=== PATIENT | male | born 1975 | race Caucasian/White ===

== ENCOUNTER 2023-12-18 10:30 | Emergency (ER) | payer BC, MEDICAID ==
[~2023-12-18] VITALS: Ht 167.6 cm; Wt 81.1 kg
[2023-12-18 11:35] LABS: BILIRUBIN,URINE NEGATIVE (Neg); CLARITY,URINE CLEAR (Clear); COLOR,URINE YELLOW (Yellow); GLUCOSE, URINE NEGATIVE (Neg); KETONES,URINE NEGATIVE (Neg); LEUKOCYTE ESTERASE ,URINE NEGATIVE (Neg); NITRITES, URINE NEGATIVE (Neg); OCCULT BLOOD,URINE NEGATIVE (Neg); PH,URINE 6.5 (4.8-8.0); PROTEIN,URINE NEGATIVE (Neg); UROBILINOGEN,URINE 0.2 E.U/dL (0.2-1.0)
[2023-12-18] MEDS ORDERED: HYDR-3965 PO (12:06)
[2023-12-18 12:16] VITALS: BP 124/70; PULSE 80; RESP 16; TEMP 98.5; O2SAT 98
[2023-12-18 12:18] LABS: UA COLLECTION TYPE CLN CATCH MIDSTREAM
[2023-12-20 12:25] LABS: CHLAMYDIA TRACHOMATIS, NAA Negative (Negative)
== END 2023-12-18 12:19 | disposition home or self-care (01) ==
LOC: ER 10:31
DX: N43.3 Hydrocele, unspecified (principal)
CPT/HCPCS: 36415; 76870; 81003; 87491; 93976; 99284